=== PATIENT | male | born 1955 | race Caucasian/White ===

== ENCOUNTER 2020-03-12 12:51 | Emergency (ER) | payer MEDICAID ==
[~2020-03-12] VITALS: Ht 182.9 cm; Wt 70.5 kg
[2020-03-12 13:01] VITALS: BP 129/89; Ht 182.9 cm; Wt 70.5 kg
[2020-03-12] MEDS ORDERED: BUPROPION HCL75 MG (13:02)
[2020-03-12] MEDS ORDERED: CELEBREX50 MG (13:02)
[2020-03-12] MEDS ORDERED: HYDROCODON-ACE1 EAC7 PO (13:23)
[2020-03-12] MEDS ORDERED: POLYTRIM EYE DR10 ML RIGHT EYE (13:23)
== END 2020-03-12 13:57 | disposition home or self-care (01) ==
LOC: D.ER 12:51
DX: S05.01XA Injury of conjunctiva and corneal abrasion without foreign body, right eye, initial encounter (principal); X58.XXXA Exposure to other specified factors, initial encounter; H53.8 Other visual disturbances